=== PATIENT | male | born 2000 ===

== ENCOUNTER 2021-12-08 12:58 | Emergency (ER) | payer SELFPAY ==
--- NOTE | 2021-12-08 13:19 | Emergency Department Report ---
ED Psych HPI - General Stated Complaint: MEDICAL TRAMA Time Seen by Provider: 12/08/21 13:11 Source: patient, family Mode of arrival: Ambulatory Limitations: Language Barrier - History of Present Illness Initial Comments: 21-year-old Vietnamese-speaking right hand male with a psychiatric disorder brought in by his mother with a right forearm laceration. Patient apparently was at work when injury occurred. Patient states he punched through locks glass door at his residence and attempting to unlock the door and open it. Patient is not directly answering questions regarding suicidal ideation, homicidal ideation, or psychosis. He does state he was listening to music today in which the artists were singing about suicide. - Related Data Allergies Allergy/AdvReac Type Severity Reaction Status Date / Time No Known Allergies Allergy Verified 12/08/21 14:02 ED Review of Systems ROS: Stated complaint: MEDICAL TRAMA Other details as noted in HPI Comment: All other systems reviewed and negative ED Physical Exam - Other Other exam information: General: No acute distress Head: Atraumatic Eyes: normal appearance ENT: Moist mucous membranes Neck: Normal appearance, no midline tenderness Chest: Clear to auscultation bilaterally CV: Regular rate and rhythm Abdomen: Soft, normal bowel sounds, nontender, nondistended, no rebound or guarding Back: Normal inspection Extremity: right forearm laceration with exposed muscle with possible tendon injury, pt has some limitation in wrist flexion and adduction. minimal bleeding at time of initial examination. cap refill less then 2 sec Neuro: GCS 15,Alert O x 3, no facial asymmetry, speech clear, no gross motor sensory deficit Psych: copperative, hx of psych disorder, difficult to illicit appropirate responses at times even with a kyrgyz speaking Skin: See extremity ED Course Vital Signs 12/08/21 12/08/21 14:07 16:46 Temperature 98.5 F 97.9 F Pulse Rate 84 71 Respiratory 18 16 Rate Blood Pressure 117/69 102/55 [Left] O2 Sat by Pulse 100 100 Oximetry - Reevaluation(s) Reevaluation #1: 12/08/21 16:46 Wound dressing of was loosened due to right hand bluish discoloration. Was loosened no bleeding was identified. A additional dressing was applied for mild pressure application and cap refill less than 2 seconds after dressing readjusted 12/08/21 16:48 - Consultations Consultation #1: 12/08/21 16:06 Pt accepted by [facility] for transfer to the ER ED Medical Decision Making - Lab Data Result diagrams: 12/08/21 13:17 12/08/21 13:17 Lab Results 12/08/21 12/08/21 12/08/21 Range/Units 13:17 13:17 13:17 WBC 8.7 (4.5-11.0) K/mm3 RBC 5.11 H (3.65-5.03) M/mm3 Hgb 14.5 (11.8-15.2) gm/dl Hct 43.2 (35.5-45.6) % MCV 85 (84-94) fl MCH 28 (28-32) pg MCHC 34 (32-34) % RDW 13.8 (13.2-15.2) % Plt Count 259 (140-440) K/mm3 Lymph % (Auto) 32.5 (13.4-35.0) % [place] % (Auto) 7.4 H (0.0-7.3) % Eos % (Auto) 4.9 H (0.0-4.3) % Baso % (Auto) 1.3 (0.0-1.8) % Lymph # (Auto) 2.8 (1.2-5.4) K/mm3 [place] # (Auto) 0.6 (0.0-0.8) K/mm3 Eos # (Auto) 0.4 (0.0-0.4) K/mm3 Baso # (Auto) 0.1 (0.0-0.1) K/mm3 Seg Neutrophils % 53.9 (40.0-70.0) % Seg Neutrophils # 4.7 (1.8-7.7) K/mm3 Sodium 135 L (137-145) mmol/L Potassium 4.4 (3.6-5.0) mmol/L Chloride 98.4 (98-107) mmol/L Carbon Dioxide 26 (22-30) mmol/L Anion Gap 15 mmol/L BUN 6 L (9-20) mg/dL Creatinine 0.9 (0.8-1.3) mg/dL Estimated GFR > 60 ml/min BUN/Creatinine Ratio 7 % Glucose 93 (75-100) mg/dL Calcium 9.9 (8.4-10.2) mg/dL Salicylates < 0.3 L (2.8-20.0) mg/dL Acetaminophen (10.0-30.0) ug/mL Plasma/Serum Alcohol (0-0.07) % 12/08/21 12/08/21 Range/Units 13:17 13:17 WBC (4.5-11.0) K/mm3 RBC (3.65-5.03) M/mm3 Hgb (11.8-15.2) gm/dl Hct (35.5-45.6) % MCV (84-94) fl MCH (28-32) pg MCHC (32-34) % RDW (13.2-15.2) % Plt Count (140-440) K/mm3 Lymph % (Auto) (13.4-35.0) % [place] % (Auto) (0.0-7.3) % Eos % (Auto) (0.0-4.3) % Baso % (Auto) (0.0-1.8) % Lymph # (Auto) (1.2-5.4) K/mm3 [place] # (Auto) (0.0-0.8) K/mm3 Eos # (Auto) (0.0-0.4) K/mm3 Baso # (Auto) (0.0-0.1) K/mm3 Seg Neutrophils % (40.0-70.0) % Seg Neutrophils # (1.8-7.7) K/mm3 Sodium (137-145) mmol/L Potassium (3.6-5.0) mmol/L Chloride (98-107) mmol/L Carbon Dioxide (22-30) mmol/L Anion Gap mmol/L BUN (9-20) mg/dL Creatinine (0.8-1.3) mg/dL Estimated GFR ml/min BUN/Creatinine Ratio % Glucose (75-100) mg/dL Calcium (8.4-10.2) mg/dL Salicylates (2.8-20.0) mg/dL Acetaminophen 5.0 L (10.0-30.0) ug/mL Plasma/Serum Alcohol < 0.01 (0-0.07) % - Radiology Data Radiology results: report reviewed RIGHT FOREARM 2 VIEW(S) INDICATION / CLINICAL INFORMATION: laceration, punched glass COMPARISON: None available. FINDINGS: BONES / JOINT(S): No acute fracture or subluxation. No significant arthritis. SOFT TISSUES: Soft tissue defect is noted involving the volar aspect of the dis simona forearm. Multiple foci of subcutaneous gas are noted within the midportion of the forearm. Possible foreign bodies are noted within the soft tissues of the mid forearm. ADDITIONAL FINDINGS: None. - Medical Decision Making 21-year-old male with psychiatric disorder who punched through a glass window with a right forearm laceration with possible tendon involvement and foreign body. Hemostasis achieved after pressure dressing application. Patient to be transferred to [facility] after discussion with on-call attending Critical Care Time: No Critical care attestation.: If time is entered above; I have spent that time in minutes in the direct care of this critically ill patient, excluding procedure time. ED Disposition Clinical Impression: Forearm laceration involving tendon, Psychiatric disorder Disposition: 02 SHORT TERM [facility]OSPITAL Is pt being admited?: No Condition: Stable Time of Disposition: 16:13 (accepted by Dr Suleman thorne md )
[2021-12-08 13:33] LABS: Basophils # (Auto) 0.1 K/mm3 (0.0-0.1); Basophils % (Auto) 1.3 % (0.0-1.8); Eosinophils # (Auto) 0.4 K/mm3 (0.0-0.4); Eosinophils % (Auto) 4.9 % (0.0-4.3); Hematocrit 43.2 % (35.5-45.6); Hemoglobin 14.5 gm/dl (11.8-15.2); Lymphocytes # (Auto) 2.8 K/mm3 (1.2-5.4); Lymphocytes % (Auto) 32.5 % (13.4-35.0); Mean Corpuscular HGB Conc 34 % (32-34); Mean Corpuscular Volume 85 fl (84-94); Monocytes # (Auto) 0.6 K/mm3 (0.0-0.8); Monocytes % (Auto) 7.4 % (0.0-7.3); Platelet Count 259 K/mm3 (140-440); Red Blood Count 5.11 M/mm3 (3.65-5.03); Red Cell Distribution Width 13.8 % (13.2-15.2)
[2021-12-08 13:54] LABS: BUN/Creatinine Ratio 7; Blood Urea Nitrogen 6 mg/dL (9-20); Calcium 9.9 mg/dL (8.4-10.2); Hemolysis Index 14
[2021-12-08] MEDS ORDERED: TETANUS,DIPH,PERTUSS(ACELL) VACCINE 0.5 ML SYRINGE IM ONE (14:30)
[2021-12-08] MEDS ORDERED: LIDOCAINE (1%) 10 MG/1 ML VIAL 20 ML MDV INFILTRATI ONE (14:30)
[2021-12-08] MEDS ORDERED: LIDOCAINE 1%/EPINEPHRINE 1:100,000 VIAL (20 ML) INFILTRATI ONE (14:30)
--- NOTE | 2021-12-08 14:48 | XRay Report ---
RIGHT FOREARM 2 VIEW(S) INDICATION / CLINICAL INFORMATION: laceration, punched glass COMPARISON: None available. FINDINGS: BONES / JOINT(S): No acute fracture or subluxation. No significant arthritis. SOFT TISSUES: Soft tissue defect is noted involving the volar aspect of the distal forearm. Multiple foci of subcutaneous gas are noted within the midportion of the forearm. Possible foreign bodies are noted within the soft tissues of the mid forearm. ADDITIONAL FINDINGS: None. Signer Name: Daniel Nice DO Signed: 12/08/2021 2:44 PM Workstation Name: [id number]
[2021-12-08] MEDS ORDERED: EPINEPHrine/PF 1 MG/1 ML INJ ONE (15:28)
[2021-12-08] MEDS ORDERED: SODIUM CHLORIDE IRRI 500 ML 500 ML IR ONE (15:31)
[2021-12-08 16:47] VITALS: BP 102/55
== END 2021-12-08 21:17 | disposition short-term general hospital (02) ==
LOC: ED 12:58
DX: S51.812A Laceration without foreign body of left forearm, initial encounter (principal); F99 Mental disorder, not otherwise specified; W22.8XXA Striking against or struck by other objects, initial encounter; Y93.89 Activity, other specified; Y92.89 Other specified places as the place of occurrence of the external cause; Y99.8 Other external cause status
CPT/HCPCS: 36415; 73090; 80048; 85025; 90471; 90715; 99285; J0171; 80320; 96372; G0480